=== PATIENT | male | born 1995 | race Caucasian/White ===

== ENCOUNTER 2016-07-16 07:24 | Emergency (ER) | payer BC ==
--- NOTE | 2016-07-16 07:45 | ED Physician Chart ---
Chief Complaint/HPI - Patient Information Date Seen:: 07/16/16 Time Seen:: 07:35 Chief Complaint:: Chest pain for 5 months. History of Present Illness:: Pt was seen immediately when I was notified about his presence. Brought in by ambulance for the above reason. Chest pain has been intermittent and at times radiates to anterior neck. No associated dyspnea, palpitation or lightheadedness. No PND, orthopnea, or ankle edema. His chest pain is not consistently exertion related. No cough. Pain is characterized as squeezing. His last episode occurred earlier this morning when he was sitting in a car, with a total duration of about 10 minutes. Pt was given nitroglycerin and ASA by ambulance staff prior to his arrival. . Pt currently denies any chest pain or discomfort. Pt states that had chest pain while he was in the [employer]. He was discharged from the service 01/2016 and no work up has ever been done. Allergies:: Allergies Allergy/AdvReac Type Severity Reaction Status Date / Time No Known Allergies Allergy Verified 07/16/16 07:28 Vitals:: Vital Signs - 8 hr 07/16/16 07:25 Temp 97.6 F HR 67 RR 16 BP 129/78 O2 Sat % 99 Historian:: Patient Family MD/PCP:: Dr. London LMP:: N/A Review:: Nurse's Note Reviewed Review of Systems - Review of Systems General/Constitutional: No fever, No chills, No weight loss, No weakness, No diaphoresis, No edema, No loss of appetite Skin: No skin lesions, No rash, No bruising Head: No headache, No light-headedness Eyes: No loss of vision, No pain, No diplopia ENT: No earache, No nasal drainage, No sore throat, No tinnitus Neck: No neck pain, No swelling, No thyromegaly, No stiffness, No mass noted Cardio Vascular: Chest pain, No palpitations, No PND, No orthopnea, No edema Pulmonary: No SOB, No cough, No sputum, No wheezing GI: No nausea, No vomiting, No diarrhea, No pain, No melena, No hematochezia, No constipation, No hematemesis G/U: No dysuria, No frequency, No hematuria Musculoskeletal: No bone or joint pain, No back pain, No muscle pain Psychiatric: No prior psych history Hematopoietic: No bruising, No lymphadenopathy Allergic/Immuno: No urticaria, No angioedema Neurological: No syncope, No focal symptoms, No weakness, No paresthesia, No headache, No seizure, No dizziness, No confusion Past Medical History - Past Medical History Past Medical History: No significant medical hx Family History: Heart disease (MGGM) Social History: Non Smoker, No Alcohol, No Drug Use, Single, Other (lives with his mother.) Employment:: Contruction worker. Family Medical History - Family Member Father Hx Family Cancer: Yes Physical Exam - Physical Examination General/Constitutional: Awake, Well-developed, well-nourished, Alert, No distress, GCS 15, Non-toxic appearing, Ambulatory Other Gen/Cons comments:: Breathes comfortably, speaks clearly, and ambulates without difficulty. Head: Atraumatic Eyes: Lids, conjuctiva normal, PERRL, EOMI Skin: Nl inspection, No rash, No skin lesions, No ecchymosis, Well hydrated, No lymphadenopathy ENMT: External ears, nose nl, Nasal exam nl, Lips, teeth, gums nl, Oropharynx nl Neck: Nontender, Full ROM w/o pain, No JVD, No nuchal rigidity, No bruit, No mass, No stridor Respiratory: Nl effort/Exclusion, Clear to Auscultation, No Wheeze/Rhonchi/Rales Cardio Vascular: RRR, No murmur, gallop, rubs, NL S1 S2, Carotid/Femoral/Distal pulses equal bilaterally GI: No tenderness/rebounding/guarding, No organomegaly, No hernia, Normal BS's, Nondistended, No mass/bruits, No McBurney tenderness Other GI comments:: Abdomen is soft. Extremities: No tenderness or effusion, Full ROM, normal strength in all extremities, No edema, Normal digits & nails Neuro/Psych: Alert/oriented (oriented x 3.), Judgement/insight normal, Mood normal, Normal gait, No focal deficits Labs/Radiology/EKG Results - Lab Results Results: Laboratory Tests 07/16/16 07/16/16 07/16/16 08:56 08:56 08:56 WBC 9.2 RBC 5.05 Hgb 15.1 Hct 44.8 MCV 88.7 MCH 29.8 MCHC Differential 33.6 RDW 13.1 Plt Count 194 MPV 8.2 Neutrophils % 71.9 Lymphocytes % 17.3 L Monocytes % 8.3 Eosinophils % 0.7 Basophils % 1.8 PT 11.0 INR 1.06 PTT (Actin FS) 23.6 L Sodium 134 L Potassium 4.2 Chloride 107 Carbon Dioxide 24.4 Anion Gap 6.8 L BUN 20 Creatinine 0.9 Est GFR ( Amer) > 60.0 Est GFR (Non-Af Amer) > 60.0 BUN/Creatinine Ratio 22.2 Glucose 107 H Calcium 9.3 Creatine Kinase 126 Troponin I 07/16/16 08:56 WBC RBC Hgb Hct MCV MCH MCHC Differential RDW Plt Count MPV Neutrophils % Lymphocytes % Monocytes % Eosinophils % Basophils % PT INR PTT (Actin FS) Sodium Potassium Chloride Carbon Dioxide Anion Gap BUN Creatinine Est GFR ( Amer) Est GFR (Non-Af Amer) BUN/Creatinine Ratio Glucose Calcium Creatine Kinase Troponin I < 0.01 L Laboratory Last Values WBC 9.2 Th/cmm (4.8-10.8) 07/16/16 08:56 RBC 5.05 Mil/cmm (4.30-5.70) 07/16/16 08:56 Hgb 15.1 gm/dL (13.2-17.3) 07/16/16 08:56 Hct 44.8 % (39.0-49.0) 07/16/16 08:56 MCV 88.7 fl (80-99) 07/16/16 08:56 MCH 29.8 pg (26.0-30.0) 07/16/16 08:56 MCHC Differential 33.6 pg (28.0-36.0) 07/16/16 08:56 RDW 13.1 % (11.5-20.0) 07/16/16 08:56 Plt Count 194 Th/cmm (150-400) 07/16/16 08:56 MPV 8.2 fl 07/16/16 08:56 Neutrophils % 71.9 % (40.0-80.0) 07/16/16 08:56 Lymphocytes % 17.3 % (20.0-50.0) L 07/16/16 08:56 Monocytes % 8.3 % (2.0-10.0) 07/16/16 08:56 Eosinophils % 0.7 % (0.0-5.0) 07/16/16 08:56 Basophils % 1.8 % (0.0-2.0) 07/16/16 08:56 PT 11.0 SECONDS (9.5-11.5) 07/16/16 08:56 INR 1.06 (0.5-1.4) 07/16/16 08:56 PTT (Actin FS) 23.6 SECONDS (26.0-38.0) L 07/16/16 08:56 Sodium 134 mEq/L (136-145) L 07/16/16 08:56 Potassium 4.2 mEq/L (3.5-5.1) 07/16/16 08:56 Chloride 107 mEq/L (98-107) 07/16/16 08:56 Carbon Dioxide 24.4 mEq/L (21.0-31.0) 07/16/16 08:56 Anion Gap 6.8 (7.0-16.0) L 07/16/16 08:56 BUN 20 mg/dL (7-25) 07/16/16 08:56 Creatinine 0.9 mg/dL (0.7-1.3) 07/16/16 08:56 Est GFR ( Amer) > 60.0 ml/min (>90) 07/16/16 08:56 Est GFR (Non-Af Amer) > 60.0 ml/min 07/16/16 08:56 BUN/Creatinine Ratio 22.2 07/16/16 08:56 Glucose 107 mg/dL (70-105) H 07/16/16 08:56 Calcium 9.3 mg/dL (8.6-10.3) 07/16/16 08:56 Creatine Kinase 126 U/L (30-223) 07/16/16 08:56 Troponin I < 0.01 ng/mL (0.01-0.05) L 07/16/16 08:56 - Radiology Results Results: PCXR: Based on my interpretation, NAD. Official report is pending. - EKG Interpretations EKG Time:: 07:28 Rate & Rhythm: NSR with VR 65 Comments:: NSSTT changes with early repolarization. Cardiac monitoring: NSR with VR 62. No ectopy. Repeat EKG at 1138. NSR with VR 66. NSSTT changes. Early repolarization. No interval change compared with EKG at 0728 today. ED Septic Shock - . Is Septic Shock (SBP<90, OR Lactate>4 mmol\L) present?: No - <6hrs of presentation: Vital Signs: Vital Signs - 8 hr 07/16/16 07:25 Temp 97.6 F HR 67 RR 16 BP 129/78 O2 Sat % 99 Reassessment (Disposition) - Reassessment Reassessment:: 0950 Pt remains stable. Lab results just became available. EKG, CXR, and lab findings have been reviewed with pt. All questions answered. 1110 Case was discussed with Dr. Osborn with pertinent H & P, EKG, CXR and lab findings reviewed. He recommended pt to have repeated EKG, and troponin I. Pt is to be discharged home and follow as outpatient if these repeated studies are unremarkable. 1209 Pt remains pain free. Repeat troponin I result just became available. Repeat EKG and troponin I result have been reviewed with pt. Pt prefers to follow with PCP Dr. London tomorrow and requests to go home now. Pt does not want further observation/management in hospital. Aftercare instructions have been given. Reassessment Condition:: Improved - Diagnosis Diagnosis:: Chest pain of unknown noncardiac in etiology, consider esophageal spasm, resolved and currently asymptomatic. - Aftercare/Follow up Instructions Aftercare/Follow-Up Instructions:: Refer to Discharge Instructions Notes:: Continue present care. Avoid greasy/spicy food. F/U with PCP Dr. London in one day for recheck with repeat lab study: BMP. Return to ER immediately if condition worsens or if any further questions/ problems. Medication Prescribed:: None - Patient Disposition Discharge/Transfer:: Home Time:: 12:15 Condition at Disposition:: Stable, Improved ED Discharge Plan - Patient Disposition Instructions: Chest Wall Pain, [id number] Accepting Physician: Lita Davis [Other]
--- NOTE | 2016-07-16 09:02 | Diagnostic Imaging Report ---
CLINICAL INDICATION: Shortness of breath FINDINGS: Heart size is normal. No infiltrates or effusions. No bony thoracic abnormalities. IMPRESSION: Normal chest x-ray.
[2016-07-16 09:04] LABS: % BASOPHILS 1.8 % (0.0-2.0); % EOSINOPHILS 0.7 % (0.0-5.0); % LYMPHOCYTES 17.3 % (20.0-50.0); % MONOCYTES 8.3 % (2.0-10.0); % NEUTROPHILS 71.9 % (40.0-80.0); HEMATOCRIT 44.8 % (39.0-49.0); HEMOGLOBIN 15.1 gm/dL (13.2-17.3); MEAN CELL VOLUME 88.7 fl (80-99); MEAN CORPUSCULAR HEMOGLOBIN 29.8 pg (26.0-30.0); MEAN CORPUSCULAR HGB CONC 33.6 pg (28.0-36.0); MEAN PLATELET VOLUME 8.2 fl; NEUTROPHILE ABSOLUTE 6.5 Th/cmm (1.8-8.0); PLATELET COUNT 194 Th/cmm (150-400); RED BLOOD COUNT 5.05 Mil/cmm (4.30-5.70); RED CELL DISTRIBUTION WIDTH 13.1 % (11.5-20.0); WHITE BLOOD COUNT 9.2 Th/cmm (4.8-10.8)
[2016-07-16 09:16] LABS: INR 1.06 (0.5-1.4)
[2016-07-16 09:18] LABS: ANION GAP 6.8 (7.0-16.0); BUN - UREA NITROGEN 20 mg/dL (7-25); BUN/CREATININE RATIO 22.2; CALCIUM SERUM 9.3 mg/dL (8.6-10.3); CARBON DIOXIDE 24.4 mEq/L (21.0-31.0); CHLORIDE 107 mEq/L (98-107); CREATININE - SERUM 0.9 mg/dL (0.7-1.3); GLUCOSE 107 mg/dL (70-105); POTASSIUM SERUM 4.2 mEq/L (3.5-5.1); SODIUM SERUM 134 mEq/L (136-145)
== END 2016-07-16 12:10 | disposition home or self-care (01) ==
LOC: ER 07:24
DX: R07.9 Chest pain, unspecified (principal)
CPT/HCPCS: 36415-UA; 71010-TC; 80048-TC; 82550-TC; 84484-TC; 85025-TC; 85610-TC; 93005